=== PATIENT | male | born 1975 | race Two or more races ===

== ENCOUNTER 2017-11-01 07:44 | Emergency (ER) | payer SELFPAY ==
[~2017-11-01] VITALS: Ht 172.7 cm; Wt 96.2 kg
[2017-11-01] MEDS ORDERED: ALUM & MAG HYDROX-SIMETH LIQ(MAALOX) 30 ML PO ONE (08:15)
[2017-11-01] MEDS ORDERED: DONNATAL 5ml ORAL Elix (BELLADONNA ALK-PHENOBARB) PO ONE (08:15)
[2017-11-01] MEDS ORDERED: LIDOCAINE VISCOUS 2% 15ML UD PO ONE (08:15)
[2017-11-01] MEDS ORDERED: ASPirin 325 MG TAB PO ONE (08:15)
[2017-11-01 09:56] VITALS: BP 132/80
[2017-11-01 10:20] LABS: Eosinophils # (auto) 0.2 uL; Neutrophils # (auto) 10.8 uL
[2017-11-01 10:24] LABS: Basophils # (auto) 0 uL; Basophils % (auto) 0.1 % (0.0-2.0); Eosinophils % (auto) 1.3 % (0.0-7.0); Hematocrit 48.8 % (41.0-53.0); Lymphocytes # (auto) 1.3 uL; Lymphocytes % (auto) 9.6 % (10.0-50.0); Mean Corpuscular Hemoglobin 34.7 pg (28.0-32.0); Mean Corpuscular Hgb Conc. 36.8 g/dL (32.0-36.0); Mean Corpuscular Volume 94.3 fL (80.0-100.0); Monocytes % (auto) 7.3 % (0.0-12.0); Neutrophils % (auto) 81.7 % (37.0-80.0); Platelet Count (auto) 278 10^3/uL (140-450); Red Blood Cells 5.18 10^6/uL (4.5-5.90); Red Cell Distribution Width 12.8 % (11.8-14.3); White Blood Cell 13.2 10^3/uL (4.4-10.8)
[2017-11-01 10:31] LABS: Alkaline Phosphatase 95 U/L (45-117); Amylase 32 U/L (25-115); Anion Gap 14 (5-15); BUN/Creatinine Ratio 15.6; Bilirubin, Total 1.2 mg/dL (0.2-1.0); Blood Urea Nitrogen 12 mg/dL (7-18); Calcium 8.3 mg/dL (8.5-10.1); Carbon Dioxide 19 mmol/L (21-32); Chloride 94 mmol/L (98-107); GFR African American 144 mL/min; GFR Non-African American 119 mL/min; Glucose 348 mg/dL (74-106); Potassium 4.7 mmol/L (3.5-5.1); Sodium 127 mmol/L (136-145)
[2017-11-01 10:42] LABS: Albumin 3.3 g/dL (3.4-5.0)
[2017-11-01 10:52] LABS: Alanine Aminotransferase 24 U/L (16-61)
[2017-11-01 10:53] LABS: Aspartate Aminotransferase 42 U/L (15-37); Total Protein 8.3 g/dL (6.4-8.2)
[2017-11-01] MEDS ORDERED: InsuLIN REG 1unit/0.01ml Soln (100units/ml) IV ONE (12:00)
[2017-11-01 13:12] LABS: Urine Bacteria NONE SEEN /hpf (None Seen); Urine Blood Negative /uL (Negative); Urine Specific Gravity 1.042 (1.001-1.035); Urine WBC <1 /hpf (0 - 3)
== END 2017-11-01 13:00 | disposition home or self-care (01) ==
LOC: ER 07:44
DX: K29.70 Gastritis, unspecified, without bleeding (principal); J40 Bronchitis, not specified as acute or chronic; F17.210 Nicotine dependence, cigarettes, uncomplicated; Z88.0 Allergy status to penicillin
CPT/HCPCS: 36415; 71046; 80053; 81001; 82150; 83690; 84484; 85025; 96374; 99285; J1815

== ENCOUNTER 2018-09-24 22:34 | Emergency (ER) | payer MEDICAID ==
[~2018-09-24] VITALS: Ht 104.1 cm; Wt 90.7 kg
[2018-09-24 23:12] LABS: Basophils # (auto) 0 uL; Eosinophils # (auto) 0.3 uL; Monocytes # (auto) 0.5 uL; White Blood Cell 6.4 10^3/uL (4.4-10.8)
[2018-09-24 23:14] LABS: Basophils % (auto) 0.7 % (0.0-2.0); Eosinophils % (auto) 4.5 % (0.0-7.0); Hematocrit 48.7 % (41.0-53.0); Hemoglobin 17.6 g/dL (13.5-17.5); Lymphocytes # (auto) 2.1 uL; Lymphocytes % (auto) 32.5 % (10.0-50.0); Mean Corpuscular Hgb Conc. 36.2 g/dL (32.0-36.0); Mean Corpuscular Volume 96.9 fL (80.0-100.0); Monocytes % (auto) 8.2 % (0.0-12.0); Neutrophils # (auto) 3.4 uL; Neutrophils % (auto) 54.1 % (37.0-80.0); Nucleated Red Blood Cells % 0.2 %; Platelet Count (auto) 229 10^3/uL (140-450); Red Blood Cells 5.03 10^6/uL (4.5-5.90); Red Cell Distribution Width 12.5 % (11.8-14.3)
[2018-09-24 23:28] LABS: Albumin 3.2 g/dL (3.4-5.0); Anion Gap 8 (5-15); Calcium 7.8 mg/dL (8.5-10.1); Carbon Dioxide 27 mmol/L (21-32); Chloride 93 mmol/L (98-107); Potassium 4.6 mmol/L (3.5-5.1); Sodium 128 mmol/L (136-145)
[2018-09-24 23:30] LABS: Bilirubin, Total 0.6 mg/dL (0.2-1.0); GFR African American 107 mL/min; GFR Non-African American 89 mL/min
[2018-09-24 23:37] LABS: Alkaline Phosphatase 116 U/L (45-117)
[2018-09-24 23:43] LABS: BUN/Creatinine Ratio 14.1; Blood Urea Nitrogen 14 mg/dL (7-18); Glucose 636 mg/dL (74-106)
[2018-09-24 23:45] LABS: Blood Alcohol < 3.0 mg/dL (0-5)
[2018-09-24] MEDS ORDERED: SODIUM CHLORIDE 0.9% 1,000 ML IV ONE (23:45)
[2018-09-25 00:06] LABS: INR 0.91 (0.9-1.15); Partial Thromboplastin Time 26.8 sec (23.78-33.04); Prothrombin Time 9.8 sec (9.27-12.13)
[2018-09-25] MEDS ORDERED: InsuLIN REG 1unit/0.01ml Soln (100units/ml) IV ONE (00:30)
[2018-09-25 00:55] LABS: Alanine Aminotransferase 23 U/L (16-61); Aspartate Aminotransferase 22 U/L (15-37); Total Protein 6.5 g/dL (6.4-8.2)
[2018-09-25] MEDS ORDERED: SODIUM CHLORIDE 0.9% 1,000 ML IV ONE (01:00)
[2018-09-25 02:45] VITALS: BP 116/69
== END 2018-09-25 03:03 | disposition home or self-care (01) ==
LOC: ER 22:37
DX: E11.65 Type 2 diabetes mellitus with hyperglycemia (principal); F17.210 Nicotine dependence, cigarettes, uncomplicated; I10 Essential (primary) hypertension; Z88.0 Allergy status to penicillin
CPT/HCPCS: 36415; 71045; 80053; 80320; 82962; 83880; 84443; 84484; 85025; 85610; 85730; 96361; 96374; 99284; J1815; J7030

== ENCOUNTER 2023-12-23 08:30 | Emergency (ER) | payer MEDICAID ==
[~2023-12-23] VITALS: Ht 172.7 cm; Wt 99.7 kg
[2023-12-23 09:00] VITALS: BP 114/65; PULSE 102; RESP 16; TEMP 98.7; O2SAT 95
[2023-12-23 09:23] LABS: Urine Bacteria FEW /hpf (None Seen); Urine Blood 1+ /uL (Negative); Urine Clarity Clear (Clear); Urine Color Yellow (Yellow); Urine Protein, UAD TRACE (Negative); Urine Specific Gravity 1.014 (1.001-1.035); Urine Urobilinogen Normal (Negative); Urine WBC 44 /hpf (0 - 3); Urine WBC Clumps PRESENT /hpf (None Seen); Urine pH 5.5 (5.0-8.0)
[2023-12-23 09:46] LABS: COVID19 ANTIGEN SOFIA FIA NEGATIVE (NEGATIVE); Rapid Influenza A Negative (Negative); Rapid Influenza B Negative (Negative)
[2023-12-23] MEDS ORDERED: CIPR-173 PO (10:32)
== END 2023-12-23 10:33 | disposition home or self-care (01) ==
LOC: ER 08:30
DX: N39.0 Urinary tract infection, site not specified (principal); Z20.822 Contact with and (suspected) exposure to COVID-19; Z88.0 Allergy status to penicillin
CPT/HCPCS: 36415; 81001; 81025; 82962; 87426; 87804